=== PATIENT | female | born 1980 | race Caucasian/White ===

== ENCOUNTER 2021-12-09 07:18 | Outpatient (CLI) | payer BC, SELFPAY ==
[2021-12-09 13:37] LABS: Cholesterol* 255 mg/dL (90-199)
[2021-12-09 13:38] LABS: HDL Cholesterol* 67 mg/dL (>=50); LDL Cholesterol Calculated 171 mg/dL (<100); Triglycerides* 84 mg/dL (40-149)
[2021-12-10 17:37] LABS: Rubella Antibody IgG 69.2 IU/mL
[2021-12-13 10:51] LABS: Glucose* 93 mg/dl (60-115)
== END 2021-12-09 07:19 | disposition home or self-care (01) ==
PROVIDERS: PCP Physician Assistant Medical; Visit Provider Family Medicine
DX: Z79.899 Other long term (current) drug therapy (principal); Z13.1 Encounter for screening for diabetes mellitus; Z01.84 Encounter for antibody response examination; Z13.6 Encounter for screening for cardiovascular disorders
CPT/HCPCS: 80061; 82947; 86735; 86762; 86765

== ENCOUNTER 2022-03-03 08:30 | Outpatient (CLI) | payer BC, SELFPAY ==
[2022-03-03 14:56] LABS: Albumin* 4.5 g/dL (3.3-5.0)
[2022-03-03 14:57] LABS: Chloride* 102 mmol/L (96-114); Potassium* 5.1 mmol/L (3.6-5.1); Sodium* 137 mmol/L (135-149)
[2022-03-03 14:59] LABS: Alkaline Phosphatase* 76 U/L (40-150); Aspartate Amino Transferase* 22 U/L (12-35); Bilirubin Total* 0.3 mg/dL (0.1-1.5); Blood Urea Nitrogen* 13 mg/dL (5-24); Carbon Dioxide* 27 mmol/L (20-32); Cholesterol* 264 mg/dL (90-199); Creatinine* 0.8 mg/dL (0.5-1.5); Estimated Glomerular Filt Rate 94 ml/min; Glucose* 84 mg/dL (60-115); Total Protein* 7.3 g/dL (6.0-8.3)
[2022-03-03 15:00] LABS: Alanine Aminotransferase* 18 U/L (4-35); Calcium* 9.4 mg/dL (8.4-10.6); HDL Cholesterol* 72 mg/dL (>=50); LDL Cholesterol Calculated 174 mg/dL (<100); Triglycerides* 90 mg/dL (40-149)
[2022-03-03 15:17] LABS: Vitamin D 25 Hydroxy* 42 ng/mL (30-80)
[2022-03-03 15:47] LABS: Hepatitis C Virus Antibody* Negative (Negative)
== END 2022-03-03 08:31 | disposition home or self-care (01) ==
PROVIDERS: PCP Physician Assistant Medical; Visit Provider Family Medicine
DX: Z00.00 Encounter for general adult medical examination without abnormal findings (principal); E78.5 Hyperlipidemia, unspecified; R53.83 Other fatigue; Z11.59 Encounter for screening for other viral diseases
CPT/HCPCS: 80053; 80061; 82306; 84443; 86803

== ENCOUNTER 2022-04-07 15:16 | Outpatient (CLI) | payer BC, SELFPAY ==
--- NOTE | 2022-04-07 15:20 | CRLHL7_ITS ---
For Patients: As a result of the Century Cures Act, medical imaging exams and procedure reports are released immediately into your electronic medical record. You may view this report before your referring provider. If you have questions, please contact your health care provider. BILATERAL SCREENING MAMMOGRAM WITH COMPUTER-AIDED DETECTION AND TOMOSYNTHESIS TECHNIQUE: CC and MLO views were obtained. These mammographic images have been obtained using full-field digital technique. These mammographic images were interpreted with the benefit of computer-aided detection. Breast Tomosynthesis was used in this interpretation. COMPARISON FILM: 02/05/21. FINDINGS: There are scattered areas of fibroglandular density IMPRESSION: There is no radiographic evidence for malignancy. ASSESSMENT: BI-RADS Category 1: Negative RECOMMENDATION: Routine screening mammogram in 1 year. A lay language report of this examination will be provided to the patient. Edgardo Duvall M.D. Diagnostic Radiologist [email or web address] Transcribed: 3:18 p.toby patel/Dictated by: Edgardo Duvall MD @ 04/08/2022 8:35:00 AM (Electronically Signed)
== END 2022-04-07 15:17 | disposition home or self-care (01) ==
LOC: MAMMO 15:17
PROVIDERS: PCP Physician Assistant Medical; Visit Provider Physician Assistant Medical
DX: Z12.31 Encounter for screening mammogram for malignant neoplasm of breast (principal)
CPT/HCPCS: 77063; 77067

== ENCOUNTER 2023-03-27 08:05 | Outpatient (CLI) | payer OTHER, SELFPAY | END 2023-03-27 08:06 | disposition home or self-care (01) | PROVIDERS: PCP Family Medicine; Visit Provider Family Medicine | DX: Z13.220 Encounter for screening for lipoid disorders (principal); R63.5 Abnormal weight gain; Z13.228 Encounter for screening for other metabolic disorders | CPT/HCPCS: 80053; 80061; 84443; 86376 ==

== ENCOUNTER 2023-05-17 07:34 | Outpatient (CLI) | payer OTHER, SELFPAY ==
--- NOTE | 2023-05-17 07:45 | CRLHL7_ITS ---
For Patients: As a result of the Cures Act, medical imaging exams and procedure reports are released immediately into your electronic medical record. You may view this report before your referring provider. If you have questions, please contact your health care provider. BILATERAL SCREENING MAMMOGRAM WITH COMPUTER-AIDED DETECTION AND TOMOSYNTHESIS TECHNIQUE: CC and MLO views were obtained. These mammographic images have been obtained using full-field digital technique. These mammographic images were interpreted with the benefit of computer-aided detection. Breast Tomosynthesis was used in this interpretation. COMPARISON FILM: 04/07/22, 02/05/21. FINDINGS: There are scattered areas of fibroglandular density IMPRESSION: There is no radiographic evidence for malignancy. ASSESSMENT: BI-RADS Category 1: Negative RECOMMENDATION: Routine screening mammogram in 1 year. A lay language report of this examination will be provided to the patient. STU ALFORD M.D. Diagnostic/Nuclear Medicine Radiologist [email or web address] Transcribed: 3:31 p.mCorby patel/Dictated by: Stu Alford MD @ 05/18/2023 8:42:00 AM (Electronically Signed)
== END 2023-05-17 07:35 | disposition home or self-care (01) ==
LOC: MAMMO 07:35
PROVIDERS: PCP Family Medicine; Visit Provider Family Medicine
DX: Z12.31 Encounter for screening mammogram for malignant neoplasm of breast (principal)
CPT/HCPCS: 77063; 77067

== ENCOUNTER 2024-07-04 15:38 | Outpatient (CLI) | payer OTHER, SELFPAY | END 2024-07-04 15:39 | disposition home or self-care (01) | LOC: FRMREF 15:39 | PROVIDERS: PCP Family Medicine; Visit Provider Family Medicine | DX: Z00.00 Encounter for general adult medical examination without abnormal findings (principal); E78.5 Hyperlipidemia, unspecified; F41.8 Other specified anxiety disorders; Z83.49 Family history of other endocrine, nutritional and metabolic diseases; Z13.6 Encounter for screening for cardiovascular disorders | CPT/HCPCS: 80053; 80061; 84443 ==

== ENCOUNTER 2024-09-10 17:30 | Outpatient (CLI) | payer OTHER, SELFPAY ==
--- NOTE | 2024-09-10 17:40 | CRLHL7_ITS ---
For Patients: As a result of the Century Cures Act, medical imaging exams and procedure reports are released immediately into your electronic medical record. You may view this report before your referring provider. If you have questions, please contact your health care provider. INDICATION: BILATERAL SCREENING MAMMOGRAM, ASYMPTOMAIC 44 F COMPARISON: 05/17/23, 04/07/22, 02/05/21 TECHNIQUE: CC and MLO views were obtained. These mammographic images have been obtained using full-field digital technique. These mammographic images were interpreted with the benefit of computer aided detection and tomosynthesis. BREAST COMPOSITION: There are scattered areas of fibroglandular density. FINDINGS: No suspicious findings. ASSESSMENT: BI-RADS 1 Negative RECOMMENDATION: Annual screening mammogram. A lay language report of this examination will be provided to the patient. Dictated by: Edgardo Duvall MD @ 09/13/2024 12:33:47 (Electronically Signed)
== END 2024-09-10 17:31 | disposition home or self-care (01) ==
LOC: MAMMO 17:31
PROVIDERS: PCP Family Medicine; Visit Provider Family Medicine
DX: Z12.31 Encounter for screening mammogram for malignant neoplasm of breast (principal)
CPT/HCPCS: 77063; 77067